=== PATIENT | female | born 1960 | race Two or more races ===

== ENCOUNTER 2022-09-09 02:03 | Inpatient (IN) | payer MEDICAID ==
[~2022-09-09] VITALS: Ht 172.7 cm; Wt 104.3 kg
--- NOTE | 2022-09-09 02:05 | NUR ---
PT to room 11
[2022-09-09 02:10] VITALS: BP 118/68
--- NOTE | 2022-09-09 02:30 | NUR ---
ER physician assessing patient.
--- NOTE | 2022-09-09 02:35 | NUR ---
Patient A/Ox4, chest rise and fall symmetrical, lying in bed, no s/s of distress, on monitor.
[2022-09-09 03:18] LABS: BASOPHILS # (AUTO) 0.1 K/uL (0.00-0.22); BASOPHILS % (AUTO) 0.8 % (0.0-2.0); EOSINOPHILS # (AUTO) 0.6 K/uL (0-0.4); EOSINOPHILS % (AUTO) 5.8 % (0.0-4.0); HEMATOCRIT 42.3 % (36-48); HEMOGLOBIN 14.4 g/dL (12.0-16.0); LYMPHOCYTES # (AUTO) 2.8 K/uL (2.5-16.5); LYMPHOCYTES % (AUTO) 28.5 % (20.5-51.1); MEAN CORPUSCULAR HEMOGLOBIN 28 pg (27-31); MEAN CORPUSCULAR HGB CONC 34 g/dL (33-37); MEAN CORPUSCULAR VOLUME 82.6 fL (80-94); MONOCYTES # (AUTO) 0.5 K/uL (0.8-1.0); MONOCYTES % (AUTO) 5.4 % (1.7-9.3); NEUTROPHILS # (AUTO) 5.8 K/uL (1.8-7.7); NEUTROPHILS % (AUTO) 59.5 % (42.2-75.2); PLATELET COUNT (AUTO) 315 K/uL (140-450); RED BLOOD CELL COUNT(AUTO) 5.12 MIL/uL (4.20-5.40); WHITE BLOOD COUNT (AUTO) 9.8 K/uL (4.8-10.8)
[2022-09-09] MEDS ORDERED: MORPHINE SULFATE 4 MG/ML SYR IVP ONE (03:25)
[2022-09-09 03:27] LABS: ALBUMIN 3.2 g/dL (3.4-5.0); ANION GAP 11.6 (8-16); ASPARTATE AMINOTRANSFERASE 33 U/L (15-37); CARBON DIOXIDE 27.8 mmol/L (21-32); CHLORIDE 101 mmol/L (98-107); CREATININE 0.7 mg/dL (0.6-1.3); GFR ARICAN-AMERICAN 109 mL/min (>90); GLUCOSE 159 mg/dL (74-106); LIPASE 141 U/L (73-393); POTASSIUM 4.4 mmol/L (3.5-5.1); SODIUM SERUM 136 mmol/L (136-145); TOTAL BILIRUBIN 0.5 mg/dL (0.0-1.0); UREA NITROGEN, BLOOD 11 mg/dL (7-18)
[2022-09-09] MEDS ORDERED: MORPHINE SULFATE 4 MG/ML SYR ONE ×2 (03:27→05:28)
[2022-09-09] MEDS ORDERED: MORPHINE SULFATE 2 MG/ML SYR IVP PRN ×2 (04:05→05:15)
--- NOTE | 2022-09-09 04:20 | NUR ---
Patient A/Ox4, chest rise and fall symmetrical, lying in bed, no s/s of distress, on monitor.
[2022-09-09] MEDS ORDERED: RIVA20TA4 PO (04:24)
[2022-09-09 04:26] LABS: BASOPHILS # (AUTO) 0.1 K/uL (0.00-0.22); BASOPHILS % (AUTO) 1.1 % (0.0-2.0); EOSINOPHILS # (AUTO) 0.5 K/uL (0-0.4); EOSINOPHILS % (AUTO) 4.7 % (0.0-4.0); HEMATOCRIT 41.9 % (36-48); HEMOGLOBIN 14.1 g/dL (12.0-16.0); LYMPHOCYTES # (AUTO) 2.6 K/uL (2.5-16.5); MEAN CORPUSCULAR HEMOGLOBIN 28 pg (27-31); MEAN CORPUSCULAR HGB CONC 34 g/dL (33-37); MEAN CORPUSCULAR VOLUME 82.6 fL (80-94); MONOCYTES # (AUTO) 0.8 K/uL (0.8-1.0); MONOCYTES % (AUTO) 6.9 % (1.7-9.3); NEUTROPHILS # (AUTO) 7.3 K/uL (1.8-7.7); NEUTROPHILS % (AUTO) 64.3 % (42.2-75.2); PLATELET COUNT (AUTO) 305 K/uL (140-450); RED BLOOD CELL COUNT(AUTO) 5.07 MIL/uL (4.20-5.40); RED CELL DISTRIBUTION WIDTH 14.2 % (11.6-13.7); WHITE BLOOD COUNT (AUTO) 11.4 K/uL (4.8-10.8)
[2022-09-09 04:41] LABS: ANION GAP 10.8 (8-16); CARBON DIOXIDE 28.2 mmol/L (21-32); CREATININE 0.7 mg/dL (0.6-1.3)
[2022-09-09] MEDS ORDERED: MORPHINE SULFATE 4 MG/ML SYR IVP PRN (05:25)
--- NOTE | 2022-09-09 06:07 | NUR ---
Patient A/Ox4, chest rise and fall symmetrical, lying in bed, no s/s of distress, on monitor.
--- NOTE | 2022-09-09 07:05 | NUR ---
Report given to AM shift nurse Desiree. AM shift nurse Desiree verbalized understanding of report, no further questions.
--- NOTE | 2022-09-09 07:05 | NUR ---
REPORT RECEIVED FROM EUGENE MACE. ASSUMED CARE AT THIS TIME
[2022-09-09] MEDS ORDERED: ZOLPIDEM 10 MG TAB PO PRN (07:10)
[2022-09-09] MEDS ORDERED: ONDANSETRON 4 MG/2 ML VIAL IVP PRN (07:10)
[2022-09-09] MEDS ORDERED: DOCUSATE SODIUM 100 MG GELCAP PO PRN (07:10)
[2022-09-09] MEDS ORDERED: ACETAMINOPHEN 325 MG TAB PO PRN (07:10)
[2022-09-09] MEDS ORDERED: POTASSIUM CHLORIDE 10 MEQ TABER PO PRN (07:10)
[2022-09-09] MEDS ORDERED: LORazepam 2 MG/ML VIAL IVP PRN (07:10)
[2022-09-09] MEDS ORDERED: MAG SULF 2000 MG/WATER PREMIX 50 ML IV PRN (07:10)
--- NOTE | 2022-09-09 08:15 | NUR ---
PT MOVED TO BED 5
--- NOTE | 2022-09-09 09:24 | NUR ---
pt w/ new onset of chest pain. refusing tylenol "I dont want to take that". MD PADRON MADE AWARE
[2022-09-09] MEDS ORDERED: RIVAROXABAN 15 MG TAB ONE (09:26)
[2022-09-09] MEDS: RIVAROXABAN 10 MG TAB PO SCH (10:12)
--- NOTE | 2022-09-09 11:56 | NUR ---
CALL RECEIVED FROM PT DAUGHTER MUNIRA . UPDATED ON PT STATUS
--- NOTE | 2022-09-09 15:49 | NUR ---
pt provided w/ hygiene products. left at bedside
--- NOTE | 2022-09-09 18:25 | NUR ---
pt provided w/ dinner. pt awake, repositioned and eating in bed. on insurance claims processor. bed at lowest position.
--- NOTE | 2022-09-09 19:20 | NUR ---
REPORT GIVEN TO TIMA CUTLER. TRANSFER OF CARE AT THIS TIME
--- NOTE | 2022-09-09 20:23 | NUR ---
SPOKE WITH DAUGHTER OF PT . INSURED FAMILY OF PT CONDITION AND BED STATUS OF ADMISSION. EXPLAINED HIPPA FAMILY UNDERSTOOD
--- NOTE | 2022-09-10 02:25 | NUR ---
PT IS ASLEEP AND ON BEDSIDE MONITOR. RESP EVEN AND UNLABORED. HOB ELEVATED BED AT LOWEST POSITION SIDE RAILS UP X1. PENDING BED AVAIL FOR TELE
--- NOTE | 2022-09-10 04:49 | NUR ---
PT ASLEEP ON BEDSIDE IMPORT/EXPORT SPECIALIST. HOB ELEVATED. RESP EVEN AND UNLABORED. PENDING BED AVAIL ON TELE
--- NOTE | 2022-09-10 07:22 | NUR ---
REPORT RECEIVED FROM TIMA CUTLER. ASSUMED CARE AT THIS TIME
[2022-09-10 07:24] LABS: BASOPHILS # (AUTO) 0.1 K/uL (0.00-0.22); BASOPHILS % (AUTO) 0.9 % (0.0-2.0); EOSINOPHILS # (AUTO) 0.3 K/uL (0-0.4); EOSINOPHILS % (AUTO) 2.6 % (0.0-4.0); HEMATOCRIT 40.7 % (36-48); HEMOGLOBIN 13.7 g/dL (12.0-16.0); LYMPHOCYTES % (AUTO) 23.5 % (20.5-51.1); MEAN CORPUSCULAR HEMOGLOBIN 28 pg (27-31); MEAN CORPUSCULAR HGB CONC 34 g/dL (33-37); MEAN CORPUSCULAR VOLUME 82.3 fL (80-94); MONOCYTES # (AUTO) 1.2 K/uL (0.8-1.0); MONOCYTES % (AUTO) 9.7 % (1.7-9.3); NEUTROPHILS % (AUTO) 63.3 % (42.2-75.2); PLATELET COUNT (AUTO) 272 K/uL (140-450); RED BLOOD CELL COUNT(AUTO) 4.95 MIL/uL (4.20-5.40); RED CELL DISTRIBUTION WIDTH 13.7 % (11.6-13.7); WHITE BLOOD COUNT (AUTO) 12.7 K/uL (4.8-10.8)
--- NOTE | 2022-09-10 07:47 | NUR ---
Patient will be admitted to care of MD PADRON. Admited to TELE. Will go to room 119B. Belongings list completed. Report to ZAHIRA MACE.
[2022-09-10 08:08] LABS: ANION GAP 10.8 (8-16); CARBON DIOXIDE 25.2 mmol/L (21-32); CREATININE 0.7 mg/dL (0.6-1.3)
--- NOTE | 2022-09-10 09:10 | NUR ---
PATIENT HAS BEEN SCREENED AND CATEGORIZED LOW NUTRITION RISK. PATIENT WILL BE SEEN WITHIN 7 DAYS OF ADMISSION. 09/09/22-09/16/[address]
[2022-09-10] MEDS: RIVAROXABAN 10 MG TAB PO SCH (09:52)
--- NOTE | 2022-09-10 09:55 | NUR ---
The patient's care was reviewed and supervised by Gail Enrique RN.
[2022-09-10 12:00] VITALS: BP 108/58
--- NOTE | 2022-09-10 12:00 | NUR ---
COVERED PT WITH 2UNITE INSULIN FOR BS OF 180. THE INSULIN IS WITNESSED BY TONI
[2022-09-10] MEDS ORDERED: INSULIN LISPRO SLIDING SCALE 100 UNITS/ML VIAL SUBQ PRN ×2 (12:15→13:00)
[2022-09-10] MEDS ORDERED: DEXTROSE 50% 50 ML SYR IVP PRN (13:10)
[2022-09-10 16:00] VITALS: BP 95/51
[2022-09-10] MEDS: BLOOD GLUCOSE MONITORING 1 DEV DEV FS SCH ×2 (16:30→21:36)
[2022-09-10 20:00] VITALS: BP 116/61
[2022-09-10] MEDS: INSULIN LISPRO SLIDING SCALE 100 UNITS/ML VIAL SUBQ PRN (21:36)
--- NOTE | 2022-09-10 21:36 | NUR ---
BLOOD SUGAR CHECK = 180 = 2 UNITS OF HUMOLOG INSULIN. PT TOLERATES WELL.
[2022-09-11] VITALS: BP 94/53
[2022-09-11] MEDS ORDERED: DILTIAZEM 25 MG/5 ML VIAL IVP SCH (00:50)
--- NOTE | 2022-09-11 00:55 | NUR ---
PT HAS VARIABLE FLUTTER, PT ALSO HAD EPISODE OF UNCONTROLLED A-FIB TOO. RIGHT NOW PT COMPLAINING OF 3-4 CHEST PAIN, B/P-107/43, P-116. INFORMED ENVIRONMENTAL SERVICES DIRECTOR DR. Sandra JOHNSON. INFORMED ALSO ATTENDING PHYSICIAN DR. PADRON, DR. PADRON ORDER CARDIZEM 10MG IVP ONCE. DR. PADRON ORDER EKG WELL. DR. PADRON ALSO ORDER: "IF PT CONTINUES TO HAVE A-FIB, TRANSFER HER TO ICU AND START CARDIZEM DRIP".
[2022-09-11 04:00] VITALS: BP 103/62
[2022-09-11 05:54] LABS: BASOPHILS # (AUTO) 0.1 K/uL (0.00-0.22); BASOPHILS % (AUTO) 0.5 % (0.0-2.0); EOSINOPHILS # (AUTO) 0.4 K/uL (0-0.4); HEMATOCRIT 42.9 % (36-48); HEMOGLOBIN 14.8 g/dL (12.0-16.0); LYMPHOCYTES # (AUTO) 3.8 K/uL (2.5-16.5); MEAN CORPUSCULAR HEMOGLOBIN 28 pg (27-31); MEAN CORPUSCULAR HGB CONC 34 g/dL (33-37); MEAN CORPUSCULAR VOLUME 82.4 fL (80-94); MONOCYTES % (AUTO) 8.3 % (1.7-9.3); NEUTROPHILS # (AUTO) 7.3 K/uL (1.8-7.7); NEUTROPHILS % (AUTO) 58.2 % (42.2-75.2); PLATELET COUNT (AUTO) 326 K/uL (140-450); RED BLOOD CELL COUNT(AUTO) 5.21 MIL/uL (4.20-5.40); RED CELL DISTRIBUTION WIDTH 13.8 % (11.6-13.7); WHITE BLOOD COUNT (AUTO) 12.5 K/uL (4.8-10.8)
[2022-09-11 06:29] LABS: ANION GAP 10.6 (8-16); CARBON DIOXIDE 25.4 mmol/L (21-32); CREATININE 0.7 mg/dL (0.6-1.3)
[2022-09-11] MEDS: BLOOD GLUCOSE MONITORING 1 DEV DEV FS SCH ×4 (06:30→21:41)
--- NOTE | 2022-09-11 06:30 | NUR ---
PT BLOOD SUGAR = 146 = 0 SLIDING SCALE COVERAGE. PT IS STABLE, VERBALIZED HAVING VERY BARELY AND MINUTE CHEST PAIN WHEN BREATHE IN. PT STATED SHE IS COMFORTABLE. B/P-103/62 P-104 T-98.3 R-20 O2 SAT-97% ROOM AIR.
--- NOTE | 2022-09-11 07:10 | NUR ---
RECEIVED REPORT FROM NIGHTSHIFT NURSE LUH FOR CONTINUITY OF CARE. PT IN STABLE CONDITION, NO SIGNS OF PAIN OR DISTRESS AT THIS TIME.
--- NOTE | 2022-09-11 07:45 | NUR ---
PT IS ON STABLE CONDITION. ENDORSED TO DAY SHIFT NURSE FOR CONTINUITY OF CARE. ALL SAFETY MEASURES ARE IN PLACE.
[2022-09-11 08:00] VITALS: BP 107/55
--- NOTE | 2022-09-11 08:07 | NUR ---
ENDORSED PT TO DAYSAZFT NURSE MIKE FOR CONTINUITY OF CARE. PT IN STABLE CONDITION.
[2022-09-11] MEDS: RIVAROXABAN 10 MG TAB PO SCH (09:48)
[2022-09-11 12:00] VITALS: BP 99/52
--- NOTE | 2022-09-11 15:45 | NUR ---
DC PLANNING SW MET WITH PT AT BEDSIDE TO COMPLETE ASSESSMENT. PT ALERT AND ORIENTED AND ABLE TO PROVIDER ALL OF HER OWN INFORMATION. PT REPORTS RESIDING AT [address] [facility] [id number] AND REPORTS RESIDING WITH HER BROTHER. PT IDENTIFIED RASHAWN MCLAUGHLIN, SISTER, AND DECLINED TO ADD ADDITIONAL EC. PT REPORTS PCP, DR MORALES AND REPORTS LAST VISIT WITH PCP 2 YRS AGO. SW SPOKE TO PT ABOUT IMPORTANCE OF FOLLOW UP CARE, PT RECEPTIVE AND REPORTS SHE WILL F/UP ONCE CLEARED FOR DC. PT IS REPORTED TO BE MEDICATION COMPLIANT AND RECEIVES MEDICATION FROM [facility] [address] IN [place], WHEN NEEDED. PT REPORTS UTILIZING CANE HOWEVER, REPORTS COMPLETING ALL ADL'S INDEPENDENTLY. PT DENIES MH/[employer] HX. PT IS REPORTED TO HAVE RECEIVED A DIABETES DX AT THIS HOSPITAL STAY THAT IS NEW TO HER. PT REPORTS RECEIVING [employer] BENEFITS OF [place] 260/MONTHLY. PT REPORTS ADEQUATE FOOD IN THE HOME AND ADEQUATE FAMILY AND FRIEND SUPPORT. PT REPORTS DC PLAN IS TO RETURN HOME WITH HER SISTER PROVIDING TRANSPORTATION, WHEN MEDICALLY STABLE. Addendum: 09/11/22 at 1549 by Petey FUNG Amended: Links added.
[2022-09-11 16:00] VITALS: BP 92/50
[2022-09-11 20:00] VITALS: BP 104/58
--- NOTE | 2022-09-11 20:21 | NUR ---
RECEIVED PT ON BED RELAX WITH NO SOB OR DISTRESS. PT STATED OF NO FEELING OF CHEST PAIN AND FEEL COMFORTABLE ALL DAY. PT CONSUMED 100% OF DINNER.
--- NOTE | 2022-09-11 20:22 | NUR ---
PATIENT HAD A CALM SHIFT. DUE MEDICATION AND CARE WERE GIVEN. NO CHANGE IN CONDITION. REPORT WAS GIVEN TO THE ON COMING STAFF FOR A CONTINUOUS EXPERT CARE.
--- NOTE | 2022-09-11 21:42 | NUR ---
BLOOD SUGAR CHECKED = 131, NO SLIDING SCALE COVERAGE. NO INSULIN INJECTION NEEDED. PT IS ON STABLE CONDITION.
--- NOTE | 2022-09-11 21:49 | NUR ---
PT COMPLAINTS OF BODY ITCHING, PER PT SHE USUALLY TAKES BENADRYL PILL PRN FOR ITCHING. REPORTED TO DR. KACIE MD ORDER BENADRYL 25MG PO Q8 PRN. MD ALSO ORDER TO GET URINE SAMPLE FOR UDS. ORDER CARRY OUT.
[2022-09-12] VITALS: BP 93/38
--- NOTE | 2022-09-12 01:00 | NUR ---
PT IS ASLEEP, NO AWAKEN FOR VITAL SIGNS, COOPERATIVE. PT DENIES OF PAIN OR DISCOMFORTS, DENIES OF CHEST PAIN. NO SOB OR DISTRESS.
[2022-09-12 04:00] VITALS: BP 94/47
--- NOTE | 2022-09-12 04:29 | NUR ---
PT COMPLAINTS OF ITCHING, BENADRYL ADMINISTERED ORDER.
[2022-09-12 06:26] LABS: ANION GAP 10.7 (8-16); CARBON DIOXIDE 25.2 mmol/L (21-32); CREATININE 0.6 mg/dL (0.6-1.3); POTASSIUM 3.9 mmol/L (3.5-5.1)
[2022-09-12] MEDS: BLOOD GLUCOSE MONITORING 1 DEV DEV FS SCH ×3 (07:01→16:30)
--- NOTE | 2022-09-12 07:01 | NUR ---
BLOOD SUGAR CHECK = 133, NO SLIDING SCALE COVERAGE. NO INSULIN NEEDED. PT IS ON STABLE CONDITION DENIES OF CHEST PAIN.
[2022-09-12 08:00] VITALS: BP 98/60
[2022-09-12] MEDS ORDERED: DILTIAZEM 120 MG CAPER PO SCH (09:00)
[2022-09-12] MEDS ORDERED: RIVAROXABAN 10 MG TAB PO SCH (09:00)
[2022-09-12] MEDS: INSULIN LISPRO SLIDING SCALE 100 UNITS/ML VIAL SUBQ PRN (11:47)
[2022-09-12 12:00] VITALS: BP 103/69
[2022-09-12] MEDS ORDERED: DILT120C95 PO (12:43)
[2022-09-12 16:00] VITALS: BP 107/57
--- NOTE | 2022-09-12 20:10 | NUR ---
DISCHARGE INSTRUCTIONS COMPLETED, PATIENT VERBALIZED UNDERSTANDING. PAPER WORK COMPLETED AND SIGNED BY PATIENT AND GIVEN TO HER. TELE BOX RECOVERED. LEFT HAND HEPLOCK DISCONTINUED AND CATHETER WAS INTACT AND IT TOOK A WHILE FOR THE BLEEDING TO STOP BECAUSE PATIENT IS ON BLOOD THINNER XARELTO. BLEEDING STOPPED CONDITION STABLE. REPORT GIVEN TO CHRISTA RN TO TAKE CARE AND TAKE PATIENT OUT WHEN THE FAMILY GETS HERE TO STRATEGIC DEBRIEFING OFFICER PATIENT TO GO HOME.
== END 2022-09-12 20:30 | disposition home or self-care (01) | DRG 203 ==
LOC: MED 02:03 → MTU 04:12
PROVIDERS: ADMIT Family Medicine; ATTEND Family Medicine
DX: M94.0 Chondrocostal junction syndrome [Tietze] (principal); E44.1 Mild protein-calorie malnutrition; I48.0 Paroxysmal atrial fibrillation; Z68.35 Body mass index [BMI] 35.0-35.9, adult; J45.909 Unspecified asthma, uncomplicated; F17.210 Nicotine dependence, cigarettes, uncomplicated; Z20.822 Contact with and (suspected) exposure to COVID-19; Z86.711 Personal history of pulmonary embolism; Z79.01 Long term (current) use of anticoagulants; Z88.8 Allergy status to other drugs, medicaments and biological substances; Z88.5 Allergy status to narcotic agent
CPT/HCPCS: 36415; 71045; 80048; 80053; 82948; 83690; 83735; 84484; 85025; 87081; 93005; 96374; 96376; 99285; J0696; J1815; J2270; J3475; J3490; J7060; Q0092; Q0163